=== PATIENT | female | born 1970 | race Caucasian/White ===

== ENCOUNTER 2018-01-30 08:38 | Emergency (ER) | payer BC, MEDICARE, OTHER | END 2018-01-30 09:27 | disposition home or self-care (01) | LOC: FTE 08:38 | DX: H57.8 Other specified disorders of eye and adnexa (principal) | CPT/HCPCS: 99283 ==

== ENCOUNTER 2018-09-11 14:21 | Emergency (ER) | payer SELFPAY, BC, OTHER, MEDICARE | END 2018-09-11 15:47 | disposition left against medical advice (07) | LOC: E/R 15:47 | DX: Z53.21 Procedure and treatment not carried out due to patient leaving prior to being seen by health care provider (principal) ==